=== PATIENT | female | born 1955 | race Two or more races ===

== ENCOUNTER 2018-07-24 18:28 | Emergency (ER) | payer SELFPAY ==
[~2018-07-24] VITALS: Ht 162.6 cm; Wt 52.0 kg
[2018-07-24] MEDS ORDERED: HYDROCODONE/ACETAMINOPHEN 10/325MG TABLET PO ONE (23:00)
[2018-07-24 23:53] VITALS: BP 163/90
== END 2018-07-25 00:14 | disposition home or self-care (01) ==
LOC: ER 18:28
DX: S42.392A Other fracture of shaft of left humerus, initial encounter for closed fracture (principal); I10 Essential (primary) hypertension; W01.0XXA Fall on same level from slipping, tripping and stumbling without subsequent striking against object, initial encounter; Y93.9 Activity, unspecified; Y92.9 Unspecified place or not applicable
CPT/HCPCS: 73030; 99283; A4565